=== PATIENT | male | born 1980 | race Caucasian/White ===

== ENCOUNTER → 2019-10-07 12:27 | Outpatient (CLI) | payer SELFPAY ==
--- NOTE | 2019-10-07 12:36 | CT_ITS ---
STUDY: CT RIGHT ANKLE WITHOUT CONTRAST REASON FOR EXAM: Male, 39 years old. RT ANKLE FX RADIATION DOSAGE (If Supplied By Facility): CTDIvol = ( 15.35 ) mGy, DLP = ( 462.44 ) mGycm TECHNIQUE: Thin section transaxial imaging of the ankle was obtained, with sagittal and coronal reconstructed images. Individualized dose optimization techniques were used for this CT. COMPARISON: None. FINDINGS: There is evidence of prior open reduction and internal fixation of the distal fibula utilizing screws and sideplate fixation device. A single screw is seen overlying the distal portion of the tibia along its medial aspect. There is evidence of a nondisplaced comminuted fracture involving the mid and lateral aspect of the distal tibia. This extends into the articular surface. There is minimal step deformity along the lateral aspect of the fracture fragments. The fracture extends into the lateral aspect of the tibial metaphysis. Normal talus, calcaneus, navicular and cuboid tarsal bones. Normal subtalar, talonavicular and calcaneocuboid articulations. Normal navicular-cuneiform, cuneiform tarsal bones and intercuneiform articulations. Normal tarsometatarsal articulations and visualized metatarsi. Soft tissue swelling. CT/Extremity Lower without Contra IMPRESSION: Prior ORIF of the distal fibula. Prior screw fixation of the medial aspect of the distal tibia and medial malleolus. Comminuted fracture involving the mid and lateral aspect of the tibial metaphysis extending into the articular surface with minimal step deformity along its lateral aspect. Soft tissue swelling. Electronically Signed: Raulito Ross, at 14:22 EDT , Service support ,
== END ==
PROVIDERS: PCP Family Medicine
DX: S82.891A Other fracture of right lower leg, initial encounter for closed fracture (principal); X58.XXXA Exposure to other specified factors, initial encounter; Y93.9 Activity, unspecified; Y99.9 Unspecified external cause status
CPT/HCPCS: 73700